=== PATIENT | female | born 1990 | race Caucasian/White ===

== ENCOUNTER 2020-01-02 23:01 | Emergency (ER) | payer MEDICAID ==
[2020-01-03] MEDS ORDERED: Bacitracin Oint 1 GM U/D Packet TOP ONE (00:51)
--- NOTE | 2020-01-03 00:55 | EDM.PDOC ---
ED HPI GENERAL MEDICAL PROBLEM - General Chief Complaint: Laceration Stated Complaint: LT HAND CUT Time Seen by Provider: 01/03/20 00:25 Source of Information: Reports: Patient, RN History Limitations: Reports: No Limitations - History of Present Illness INITIAL COMMENTS - FREE TEXT/NARRATIVE: 29 yo female fell onto some broken glass and lacerated her R palm. She thinks there is something in at least one of the wounds. Tetanus last 5 yrs ago. Onset: Today, Sudden Onset Date: 01/03/20 Duration: Minutes:, Constant Location: Reports: Upper Extremity, Left Quality: Reports: Sharp Severity: Mild Improves with: Reports: Rest Worsens with: Reports: Other (touching wound) Context: Reports: Trauma Associated Symptoms: Reports: No Other Symptoms Treatments CANDY ROLLER: Reports: Other (see below) (none) left palm lceration Pain Score (Numeric/FACES): 8 - Related Data Allergies Allergy/AdvReac Type Severity Reaction Status Date / Time No Known Allergies Allergy Verified 01/02/20 23:58 Home Meds: Home Meds NK [No Known Home Meds] 01/02/20 [History] Past Medical History Respiratory History: 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: - Past Surgical History Female Surgical History: Reports: Section Social & Family History - Tobacco Use Smoking Status *Q: Never Smoker - Caffeine Use Caffeine Use: Reports: Coffee, Soda - Recreational Drug Use Recreational Drug Use: Yes Recreational Drug Type: Reports: Marijuana/Hashish Recreational Drug Use Frequency: Socially ED ROS GENERAL - Review of Systems Review Of Systems: See Below Constitutional: Reports: No Symptoms Musculoskeletal: Reports: No Symptoms Skin: Reports: Wound (lacerations L palm) Neurological: Reports: No Symptoms ED EXAM, SKIN/RASH Exam: See Below Exam Limited By: No Limitations General Appearance: Alert, WD/WN, No Apparent Distress Extremities: Other (lacerations L palm ) Neurological: Alert, Oriented, CN II-XII Intact, Normal Cognition, No Motor/Sensory Deficits Psychiatric: Normal Affect, Normal Mood Skin: Warm, Dry, Normal Color, No Rash, Wound/Incision (L harper lacerations x 2) Location, Skin: Upper Extremity, Left Characteristics: Linear Associated features: Tenderness. No: Warmth, Induration, Lymphangitis ED SKIN PROCEDURES - Foreign Body Removal Performing Doctor:: Ginder,Kenji G Foreign Body Other Location Comment:: After anesthesia the wound was probed with a splinter forceps and a piece of glass was removed from the larger laceration. Anesthesia Type: Local (Lidocaine 1% with epi x 5 ml) Complications:: No Course - Vital Signs Last Recorded V/S: Last Vital Signs Temp 36.3 C 01/02/20 23:59 Pulse 79 01/02/20 23:59 Resp 16 01/02/20 23:59 BP 134/102 H 01/02/20 23:59 Pulse Ox 99 01/02/20 23:59 Departure - Departure Time of Disposition: 01:05 Disposition: Home, Self-Care 01 Condition: Good Clinical Impression: Laceration of palm Qualifiers: Encounter type: initial encounter Laterality: left Qualified Code(s): S61.412A - Laceration without foreign body of left hand, initial encounter Foreign body of hand, left Qualifiers: Encounter type: initial encounter Qualified Code(s): S60.552A - Superficial foreign body of left hand, initial encounter - Discharge Information *PRESCRIPTION DRUG MONITORING PROGRAM REVIEWED*: No *COPY OF PRESCRIPTION DRUG MONITORING REPORT IN PATIENT WENDY: No Instructions: Laceration Care, Adult, [id number], Hand or Foot Foreign Body, Adult Referrals: PCP,None [Primary Care Provider] - Additional Instructions: Keep hand clean for 3 days. Elevate tonight to reduce bleeding. Clean hand twice daily with soap and water. Dry. Apply a new dressing. Wound check if any signs of infection develop. Take ibuprofen and/or acetaminophen for pain relief. Sepsis Event Note (ED) - Evaluation Sepsis Screening Result: No Definite Risk - Focused Exam Vital Signs: Vital Signs Temp Pulse Resp BP Pulse Ox 01/02/20 23:59 36.3 C 79 16 134/102 H 99 01/02/20 23:44 36.3 C 79 16 134/102 H 99
== END 2020-01-03 01:04 | disposition home or self-care (01) ==
LOC: JP.ED 23:01
DX: S61.422A Laceration with foreign body of left hand, initial encounter (principal); W25.XXXA Contact with sharp glass, initial encounter
CPT/HCPCS: 99282